=== PATIENT | male | born 1995 | race Caucasian/White ===

== ENCOUNTER 2022-02-13 10:43 | Emergency (ER) | payer MEDICAID ==
[~2022-02-13] VITALS: Ht 185.4 cm; Wt 148.0 kg
[2022-02-13 12:40] VITALS: BP 163/99
== END 2022-02-13 15:34 | disposition home or self-care (01) ==
LOC: ER 11:01
DX: U07.1 COVID-19 (principal)
CPT/HCPCS: 99281